=== PATIENT | male | born 1955 | race African-American/Black ===

== ENCOUNTER 2019-08-18 02:46 | Inpatient (IN) | payer OTHER, MEDICARE ==
[~2019-08-18] VITALS: Ht 177.8 cm; Wt 78.0 kg
--- NOTE | 2019-08-18 03:10 | NUR ---
PT CAME TO ER BED 2 C/O "FEELING LIKE GOING INTO A DIABETIC COMA". PATIENT STATES THAT HE JUST RECENTLY GOT OUT [facility] AND HE DOES NOT WANT TO YET. BLOOD SUGAR CHECKED 444. AAOX4. NOT IN DISTRESS. IV LINE ESTABLISHED ON THE LEFT ADN RIGHT HAND 20G UPON ARRIVAL. CONNECTED TO THE WIG MAKER.
[2019-08-18] MEDS ORDERED: IV NS 0.9% 1,000 ML BAG IV ONE ×3 (03:30→06:00)
[2019-08-18 03:33] LABS: BASOPHILS # (AUTO) 0.1 /CMM (0.0-0.2); BASOPHILS % (AUTO) 0.7 % (0.0-2.0); EOSINOPHILS % (AUTO) 1.3 % (0.0-6.0); HEMATOCRIT 37 % (39-51); LYMPHOCYTES # (AUTO) 2.2 /CMM (0.8-4.8); LYMPHOCYTES % (AUTO) 20.6 % (20.0-44.0); MEAN CORPUSCULAR HGB CONC 32 g/dl (31.0-36.0); MEAN CORPUSCULAR VOLUME 91 fL (80-96); MONOCYTES # (AUTO) 0.9 /CMM (0.1-1.30); MONOCYTES % (AUTO) 8.2 % (2.0-12.0); NEUTROPHILS # (AUTO) 7.4 /CMM (1.8-8.9); NEUTROPHILS % (AUTO) 69.2 % (43.0-81.0); PLATELET COUNT (AUTO) 160 /CMM (150-450); RED BLOOD CELL COUNT(AUTO) 4.12 MIL/uL (4.5-6.0); WHITE BLOOD COUNT (AUTO) 10.7 K/uL (4.3-11.0)
[2019-08-18 03:51] LABS: CALCIUM, SERUM 8.5 mg/dL (8.5-10.1); POTASSIUM 5.5 mmol/L (3.5-5.1)
[2019-08-18 03:52] LABS: CREATININE 3.1 mg/dL (0.6-1.3)
--- NOTE | 2019-08-18 03:54 | NUR ---
URINE COLLECTED AND SENT TO LAB
[2019-08-18 03:55] LABS: ALBUMIN 3.3 g/dL (3.4-5.0); BILIRUBIN,TOTAL 0.1 mg/dL (0.2-1.0); TOTAL PROTEIN, SERUM 7.3 g/dL (6.4-8.2)
[2019-08-18] MEDS ORDERED: INSULIN REGULAR, HUMAN 100 UNIT/ML 10 ML VIAL SQ ONE (04:00)
[2019-08-18] MEDS ORDERED: INSULIN REGULAR, HUMAN 100 UNIT/ML 10 ML VIAL ONE (04:07)
[2019-08-18 04:08] LABS: APPEARANCE,URINE Clear (CLEAR); BILIRUBIN,URINE Negative (NEGATIVE); BLOOD, URINE Moderate Ery/uL (NEGATIVE); COLOR,URINE Yellow (YELLOW); KETONES,URINE Negative (NEGATIVE); LEUKOCYTE ESTERASE ,URINE Negative (NEGATIVE); NITRITE, URINE Negative (NEGATIVE); PH,URINE 5.5 (5.0-8.0); PROTEIN,URINE >=300 mg/dl (NEGATIVE); UGLUCOSE 500 MG/DL mg/dL (NEGATIVE); UROBILINOGEN,URINE 0.2 EU/dL (0.2)
[2019-08-18 05:00] LABS: BACTERIA,URINE Few /HPF (None Seen); SQUAMOUS EPITHELIAL CELL,UR Rare /HPF (None Seen); WBC,URINE 0-2 /HPF (0-3)
--- NOTE | 2019-08-18 05:25 | NUR ---
BED ASSIGNMENT 327
[2019-08-18] MEDS ORDERED: ONDANSETRON HCL/PF 4 MG/2 ML VIAL IVP PRN (05:30)
[2019-08-18] MEDS ORDERED: Z GUARD REMEDY 2 OZ OINT TP PRN (05:30)
[2019-08-18] MEDS ORDERED: DEXTROSE 50%-WATER 50 ML DISP.SYRIN IV PRN (05:30)
[2019-08-18] MEDS ORDERED: MAGNESIUM HYDROXIDE 30 ML UDC PO PRN (05:30)
[2019-08-18] MEDS ORDERED: MAG HYDROX/AL HYDROX/SIMETH 30 ML UDC PO PRN (05:30)
--- NOTE | 2019-08-18 05:30 | NUR ---
PATIENT IS RESTING COMFORTABLY IN BED 2. NOT IN ANY DISTRESS. BREATHING EVENLY AND UNLABORED. CONNECTED TO MONITOR. CALL LIGHT WITHIN REACH.
[2019-08-18 05:39] LABS: CREATININE 2.8 mg/dL (0.6-1.3); POTASSIUM 5.3 mmol/L (3.5-5.1)
--- NOTE | 2019-08-18 06:10 | NUR ---
REPORT GIVEN TO DEBBIE STEELE. FOR OLEKSANDR
[2019-08-18] MEDS: BLOOD SUGAR DIAGNOSTIC 1 EACH STRIP IN SCH ×4 (07:30→22:37)
--- NOTE | 2019-08-18 08:14 | NUR ---
MS RN NOTES PATIENT IN BED, ALERT AND ORIENTED X 4. BREATHING EVEN AND UNLABORED ON NC 2L. DENIES ACUTE RESPIRATORY DISTRESS, NO ACUTE PAIN. IV ON L HAND #20G, CLEAN DRY AND INTACT. SHOWS NO REDNESS, NO INFILTRATION. SAFETY PRECAUTIONS IN PLACE. BED IN LOWEST POSITION, LOCKED, AND CALL LIGHT KEPT WITHIN REACH. WILL CONTINUE TO MONITOR.
[2019-08-18] MEDS ORDERED: INSULIN (09:23)
[2019-08-18] MEDS ORDERED: ASPI-605 PO (09:23)
[2019-08-18] MEDS ORDERED: DILANTIN (09:23)
[2019-08-18] MEDS ORDERED: B/P MEDS (09:23)
--- NOTE | 2019-08-18 10:45 | NUR ---
MS RN NOTES BS 159 PATIENT WAS REFUSED FOR INSULIN INJECTION.
[2019-08-18] MEDS: IV 1/2NS 1000 ML 1,000 ML IV PRN (11:23)
--- NOTE | 2019-08-18 12:30 | NUR ---
TELE/RN NOTE BLOOD SUGAR CHECK SCHEDULED AT 0730 IS DONE AT 1043 PER PATIENT REQUEST. NOTED BLOOD SUGAR READING OF 153. THE PATIENT REFUSED INSULIN ADMINISTRATION DESPITE EXPLAINING RISKS AND BENEFITS MULTIPLE TIMES.
[2019-08-18] MEDS: INSULIN REGULAR, HUMAN 100 UNIT/ML 3 ML VIAL SQ PRN ×2 (12:44→17:41)
--- NOTE | 2019-08-18 12:48 | NUR ---
MS/RN NOTES BS-179 ADMINISTERED 4 UNITS INSULIN. Addendum: 08/18/19 at 1823 by LELA LAUREANO RN ERROR DOCUMENTATION
[2019-08-18] MEDS ORDERED: AMLODIPINE BESYLATE 5 MG TABLET PO SCH (14:30)
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
[2019-08-18 16:00] VITALS: BP 139/70
[2019-08-18] MEDS: AMLODIPINE BESYLATE 5 MG TABLET PO SCH (16:28)
--- NOTE | 2019-08-18 19:10 | NUR ---
MS/RN NOTE THE PATIENT IS ALERT AND ORIENTED X4. DENIES PAIN OR SOB AT THIS TIME. IN ROOM AIR. IN NO APPARENT DISTRESS. IV LINES ON BOTH HAND ARE INTACT AND PATENT. BED LOW AND LOCKED. SIDE RAILS UP X3. CALL LIGHT WITHIN REACH. WILL ENDORSE TO BEACH EXPERT.
--- NOTE | 2019-08-18 19:25 | NUR ---
RN NOTES RECEIVED PATIENT AWAKE, ALERT ORIENTED X4, SAFETY MEASURES IN PLACE, ASPIRATION PRECAUTION EMPHASIZED, CALL LIGHT WITHIN EASY REACH, ALL NEEDS ANTICIPATED, WILL MONITOR ACCORDINGLY.
[2019-08-18 20:00] VITALS: BP 134/79
[2019-08-18] MEDS: PHENYTOIN EXTENDED RELEASE 100 MG CAPSULE PO SCH (21:36)
--- NOTE | 2019-08-18 22:55 | NUR ---
RN NOTES CALLED AND SPOKE TO DR. POSADA REGARDING BLOOD SUGAR MONITORING AND INSULIN SLIDING SCALE CLARIFICATION, BLOOD SUGAR MONITORING IS ACHS AND INSULIN COVERAGE IS AC AGGRESSIVE ONLY. LATEST BLOOD SUGAR RESULT IS 162 MG/DL NO INSULIN COVERAGE PER DR POSADA, ONLY AC AGGRESSIVE SLIDING SCALE, NOTED CHARGE NURSE [place] AWARE, WILL MONITOR PATIENT ACCORDINGLY.
[2019-08-19 00:29] LABS: APPEARANCE,URINE CLEAR (CLEAR); BILIRUBIN,URINE NEGATIVE (NEGATIVE); BLOOD, URINE TRACE-INTA Ery/uL (NEGATIVE); COLOR,URINE YELLOW (YELLOW); KETONES,URINE NEGATIVE (NEGATIVE); LEUKOCYTE ESTERASE ,URINE NEGATIVE (NEGATIVE); NITRITE, URINE NEGATIVE (NEGATIVE); PROTEIN,URINE 100 mg/dl (NEGATIVE); UGLUCOSE NEGATIVE (NEGATIVE); UROBILINOGEN,URINE 0.2 EU/dL (0.2)
[2019-08-19 00:35] LABS: BACTERIA,URINE None seen /HPF (None Seen); RBC,URINE 0-2 /HPF (0-2); SQUAMOUS EPITHELIAL CELL,UR Few /HPF (None Seen); WBC,URINE 0-2 /HPF (0-3)
[2019-08-19 01:04] LABS: CREATININE, URINE 82.4 MG/DL (30.0-125.0); URINE TOTAL PROTEIN 155.6 mg/dL (0-11.9)
[2019-08-19 03:32] LABS: EOSINOPHIL,URINE None Seen
--- NOTE | 2019-08-19 04:40 | NUR ---
RN NOTES SECOND UNIT OF PRBC TRANSFUSING, VITAL SIGNS WITHIN PATIENT'S NORMAL RANGE, NO SIGNS OF ACTIVE BLEEDING, ALERT ORIENTED X4 RESPOSIVE BUT WEAK. WILL MONITOR ACCORDINGLY. Addendum: 08/19/19 at 0810 by DULCE LIANG RN WRONG PATIENT DOCUMENTATION.
[2019-08-19] MEDS: BLOOD SUGAR DIAGNOSTIC 1 EACH STRIP IN SCH ×4 (06:47→21:20)
[2019-08-19] MEDS: INSULIN REGULAR, HUMAN 100 UNIT/ML 3 ML VIAL SQ PRN ×3 (06:55→21:32)
--- NOTE | 2019-08-19 07:20 | NUR ---
MS RN NOTES PATIENT IN BED ALERT ORIENTED X 4. NO ACUTE DISTRESS NOTED. BREATHING UNLABORED. IV ACCESS PATENT AND INTACT, NO REDNESS OR SWELLING NOTED. SAFETY MEASURES IN PLACE. CALL LIGHT WITHIN REACH. WILL CONTINUE TO MONITOR ACCORDINGLY
--- NOTE | 2019-08-19 07:23 | NUR ---
RN NOTES ALL NEEDS ATTENDED AND MET ABLE TO REST AND SLEPT AT INTERVALS, BLOOD TRANSFUSION ON GOING. ENDORSE TO AM NURSE FOR CONTINUITY OF CARE, NPO SINCE MIDNIGHT. Addendum: 08/19/19 at 0811 by DULCE LIANG RN DISREGARD ABOVE NOTES. WRONG PATIENT DOCUMENTATION.
--- NOTE | 2019-08-19 07:30 | NUR ---
RN NOTES ALL NEEDS ATTENDED, ENDORSED TO AM NURSE FOR CONTINUITY OF CARE.
[2019-08-19 08:00] VITALS: BP 148/80
[2019-08-19 08:46] LABS: BASOPHILS # (AUTO) 0.1 /CMM (0.0-0.2); BASOPHILS % (AUTO) 0.7 % (0.0-2.0); EOSINOPHILS % (AUTO) 2.8 % (0.0-6.0); HEMATOCRIT 36 % (39-51); HEMOGLOBIN 11.9 g/dL (13.5-17.5); LYMPHOCYTES # (AUTO) 2.7 /CMM (0.8-4.8); LYMPHOCYTES % (AUTO) 35.4 % (20.0-44.0); MEAN CORPUSCULAR HGB CONC 33 g/dl (31.0-36.0); MEAN CORPUSCULAR VOLUME 89 fL (80-96); MONOCYTES # (AUTO) 0.5 /CMM (0.1-1.30); MONOCYTES % (AUTO) 6.6 % (2.0-12.0); NEUTROPHILS # (AUTO) 4.2 /CMM (1.8-8.9); NEUTROPHILS % (AUTO) 54.5 % (43.0-81.0); PLATELET COUNT (AUTO) 158 /CMM (150-450); RED BLOOD CELL COUNT(AUTO) 4.06 MIL/uL (4.5-6.0); WHITE BLOOD COUNT (AUTO) 7.7 K/uL (4.3-11.0)
[2019-08-19 08:49] LABS: ALBUMIN 2.9 g/dL (3.4-5.0); BILIRUBIN,TOTAL 0.3 mg/dL (0.2-1.0); CALCIUM, SERUM 8.7 mg/dL (8.5-10.1); CREATININE 2.7 mg/dL (0.6-1.3); MAGNESIUM 1.7 mg/dL (1.8-2.4); PHOSPHORUS 2.8 mg/dL (2.5-4.9); POTASSIUM 5.3 mmol/L (3.5-5.1); TOTAL PROTEIN, SERUM 6.6 g/dL (6.4-8.2)
[2019-08-19 09:20] LABS: PHENYTOIN (DILANTIN) 1.3 ug/ml (10.0-20.0)
[2019-08-19] MEDS: PHENYTOIN EXTENDED RELEASE 100 MG CAPSULE PO SCH ×2 (09:59→21:20)
[2019-08-19] MEDS: ASPIRIN EC 81 MG TABLET.DR PO SCH (09:59)
[2019-08-19] MEDS: AMLODIPINE BESYLATE 5 MG TABLET PO SCH ×2 (10:00→17:39)
--- NOTE | 2019-08-19 13:59 | NUR ---
MS RN NOTES PATIENT SEEN AND EVALUATED BY WELLNESS TRAINER ASPEN CHATTERJEE WITH NO NEW ORDERS MADE.
[2019-08-19 16:00] VITALS: BP 138/84
[2019-08-19] MEDS: IV 1/2NS 1000 ML 1,000 ML IV PRN (17:43)
--- NOTE | 2019-08-19 18:40 | NUR ---
MS RN NOTES PATIENT IN BED ALERT ORIENTED X 3. NO ACUTE DISTRESS NOTED. BREATHING UNLABORED. IV ACCESS PATENT AND INTACT, NO REDNESS OR SWELLING NOTED. NEEDS ATTENDED AND ANTICIPATED. KEPT CLEAN DRY AND COMFORTABLE. SAFETY MEASURES IN PLACE. CALL LIGHT WITHIN REACH. WILL ENDORSE TO NIGHT NURSE FOR CONTINUITY OF CARE.
[2019-08-19 20:00] VITALS: BP 139/77
--- NOTE | 2019-08-20 06:30 | NUR ---
MS RN NOTES AWAKE & RESPONSIVE. NOT IN ANY DISTRESS. NO SOB NOTED. DENIES ANY PAIN OR DISCOMFORT AT THIS TIME. WITH IVF INFUSING WELL. MONITORED ACCORDINGLY. CALL LIGHT WITHIN REACH. BED IN LOWEST POSITION. SR UP X 2 FOR SAFETY. WILL ENDORSE TO NEXT SHIFT.
[2019-08-20] MEDS: BLOOD SUGAR DIAGNOSTIC 1 EACH STRIP IN SCH ×4 (06:32→21:49)
[2019-08-20] MEDS: INSULIN REGULAR, HUMAN 100 UNIT/ML 3 ML VIAL SQ PRN ×4 (06:33→21:50)
[2019-08-20] MEDS: ACETAMINOPHEN 325 MG TABLET PO PRN ×2 (06:44→21:31)
[2019-08-20 07:30] LABS: BASOPHILS # (AUTO) 0.1 /CMM (0.0-0.2); BASOPHILS % (AUTO) 0.7 % (0.0-2.0); EOSINOPHILS % (AUTO) 0.7 % (0.0-6.0); HEMATOCRIT 36 % (39-51); HEMOGLOBIN 11.9 g/dL (13.5-17.5); LYMPHOCYTES # (AUTO) 2.1 /CMM (0.8-4.8); LYMPHOCYTES % (AUTO) 23.2 % (20.0-44.0); MEAN CORPUSCULAR HGB CONC 33 g/dl (31.0-36.0); MEAN CORPUSCULAR VOLUME 88 fL (80-96); MONOCYTES # (AUTO) 0.6 /CMM (0.1-1.30); MONOCYTES % (AUTO) 7.1 % (2.0-12.0); NEUTROPHILS # (AUTO) 6.1 /CMM (1.8-8.9); NEUTROPHILS % (AUTO) 68.3 % (43.0-81.0); PLATELET COUNT (AUTO) 150 /CMM (150-450); RED BLOOD CELL COUNT(AUTO) 4.03 MIL/uL (4.5-6.0); WHITE BLOOD COUNT (AUTO) 8.9 K/uL (4.3-11.0)
--- NOTE | 2019-08-20 07:30 | NUR ---
RN OPENING NOTES RECEIVED PATIENT IN BED RESTING COMFORTABLY IN MODERATE HIGH BACK REST. A/O X4. ABLE TO MAKE NEEDS KNOWN. NO SIGNS OF DISTRESS NOTED AT THIS TIME. IV FLUIDS ON R HAND #22 RUNNING WITH NS @125 ML/HR. PATENT AND INTACT. SAFETY MEASURES IN PLACE, BED IN LOWEST LOCKED POSITION WITH SIDE RAILS UP X2. CALL LIGHT WITHIN REACH. WILL CONTINUE TO MONITOR.
[2019-08-20 07:46] LABS: CALCIUM, SERUM 8.5 mg/dL (8.5-10.1); CREATININE 2.7 mg/dL (0.6-1.3); POTASSIUM 4.9 mmol/L (3.5-5.1)
[2019-08-20 08:00] VITALS: BP 141/78
[2019-08-20] MEDS: ASPIRIN EC 81 MG TABLET.DR PO SCH (08:28)
[2019-08-20] MEDS: AMLODIPINE BESYLATE 5 MG TABLET PO SCH ×2 (08:28→16:31)
[2019-08-20] MEDS: PHENYTOIN EXTENDED RELEASE 100 MG CAPSULE PO SCH ×2 (08:28→21:31)
[2019-08-20] MEDS: IV 1/2NS 1000 ML 1,000 ML IV PRN ×2 (13:48→22:54)
[2019-08-20 16:00] VITALS: BP 146/80
--- NOTE | 2019-08-20 18:52 | NUR ---
RN CLOSING NOTES PATIENT IN BED RESTING COMFORTABLY IN MODERATE HIGH BACK REST. A/O X4. ABLE TO MAKE NEEDS KNOWN. NO SIGNS OF DISTRESS NOTED THROUGHOUT THE SHIFT. IV FLUIDS ON LEFT HAND #22 RUNNING WITH NS @125 ML/HR. PATENT AND INTACT. SAFETY MEASURES IN PLACE, BED IN LOWEST LOCKED POSITION WITH SIDE RAILS UP X2. CALL LIGHT WITHIN REACH. WILL ENDORSE TO CASINO SHIFT MANAGER NURSE FOR OLEKSANDR.
[2019-08-20 20:56] VITALS: BP 152/95
[2019-08-20] MEDS ORDERED: INSULIN GLARGINE, 100 UNIT/ML CARTRIDGE SQ SCH (22:00)
--- NOTE | 2019-08-21 00:04 | NUR ---
MS RN NOTES RECEIVED PT IN BED AWAKE AND ABLE TO MAKE NEEDS KNOWN. CA/O X4. ABLE TO MAKE NEEDS KNOWN. RESPIRATIONS EVEN AND UNLABORED WITH NO S/S OF ACUTE DISTRESS OR SOB NOTED. IV FLUIDS ON R HAND #22 RUNNING WITH NS @125 ML/HR, PATENT AND INTACT. SAFETY MEASURES IN PLACE WITH BED IN LOWEST LOCKED POSITION WITH SIDE RAILS UP X2. CALL LIGHT WITHIN REACH. WILL CONTINUE TO MONITOR.
[2019-08-21 07:32] LABS: BASOPHILS # (AUTO) 0.1 /CMM (0.0-0.2); BASOPHILS % (AUTO) 0.9 % (0.0-2.0); EOSINOPHILS % (AUTO) 2.6 % (0.0-6.0); HEMATOCRIT 40 % (39-51); HEMOGLOBIN 13.3 g/dL (13.5-17.5); LYMPHOCYTES # (AUTO) 3.2 /CMM (0.8-4.8); MEAN CORPUSCULAR HGB CONC 33 g/dl (31.0-36.0); MEAN CORPUSCULAR VOLUME 89 fL (80-96); MONOCYTES # (AUTO) 0.8 /CMM (0.1-1.30); MONOCYTES % (AUTO) 10.4 % (2.0-12.0); NEUTROPHILS # (AUTO) 3.3 /CMM (1.8-8.9); NEUTROPHILS % (AUTO) 44.1 % (43.0-81.0); PLATELET COUNT (AUTO) 169 /CMM (150-450); RED BLOOD CELL COUNT(AUTO) 4.47 MIL/uL (4.5-6.0); WHITE BLOOD COUNT (AUTO) 7.5 K/uL (4.3-11.0)
[2019-08-21] MEDS: INSULIN REGULAR, HUMAN 100 UNIT/ML 3 ML VIAL SQ PRN ×2 (07:32→11:43)
[2019-08-21] MEDS: BLOOD SUGAR DIAGNOSTIC 1 EACH STRIP IN SCH ×2 (07:32→11:41)
[2019-08-21 07:36] LABS: CALCIUM, SERUM 8.6 mg/dL (8.5-10.1); CREATININE 2.8 mg/dL (0.6-1.3); POTASSIUM 4.3 mmol/L (3.5-5.1)
[2019-08-21 07:38] LABS: PHENYTOIN (DILANTIN) 3.9 ug/ml (10.0-20.0)
--- NOTE | 2019-08-21 07:44 | NUR ---
MS RN NOTES PT IN BED AWAKE AND ABLE TO MAKE NEEDS KNOWN. CA/O X4. ABLE TO MAKE NEEDS KNOWN. RESPIRATIONS EVEN AND UNLABORED WITH NO S/S OF ACUTE DISTRESS OR SOB NOTED THROUGHOUT SHIFT. IV FLUIDS ON R HAND #22 RUNNING WITH NS @125 ML/HR, PATENT AND INTACT. SAFETY MEASURES IN PLACE WITH BED IN LOWEST LOCKED POSITION WITH SIDE RAILS UP X2. CALL LIGHT WITHIN REACH. WILL ENDORSE TO ONCOMING NURSE FOR OLEKSANDR.
[2019-08-21 08:00] VITALS: BP 124/74
--- NOTE | 2019-08-21 08:00 | NUR ---
m/s rail car operator: initial assessment received pt in bed awake, a/ox4. ambulatory. for d'c planning home today. pt will sign homeless waiver form per forensic social worker. pt will go to [facility] and [facility]) already provided pt resources. Addendum: 08/21/19 at 1204 by MERNA GIPSON RECREATION ATTENDANT pt iv to right hand was dislodged per noc nurse and pt refused iv insertion. pt for d'c planning today.
[2019-08-21 09:06] VITALS: BP 124/74
[2019-08-21] MEDS: PHENYTOIN EXTENDED RELEASE 100 MG CAPSULE PO SCH (09:06)
[2019-08-21] MEDS: AMLODIPINE BESYLATE 5 MG TABLET PO SCH (09:06)
[2019-08-21] MEDS: ASPIRIN EC 81 MG TABLET.DR PO SCH (09:10)
--- NOTE | 2019-08-21 11:00 | NUR ---
m/s process tech: md visit seen and examined by valeria sandhu ([facility]). valeria will put the discharge order with prescription. pt aware.
--- NOTE | 2019-08-21 12:00 | NUR ---
m/s staffing mgr: notes lunch served. awaiting discharge order and prescriptions from valeria ([facility]). pt aware.
[2019-08-21 12:06] LABS: *SPE A/G RATIO 1.1 (0.7-1.7); *SPE ALPHA-1-GLOBULIN 0.2 g/dL (0.0-0.4); *SPE BETA GLOBULIN 0.7 g/dL (0.7-1.3); *SPE GLOBULIN, TOTAL 2.8 g/dL (2.2-3.9); *SPE M-SPIKE Not Observed g/dL (Not Observed)
--- NOTE | 2019-08-21 13:29 | NUR ---
m/s scout: notes received order from valeria sandhu ([facility]) with order to discharge pt. order acknowledged.
[2019-08-21] MEDS ORDERED: INSU100I26 SQ (13:38)
[2019-08-21] MEDS ORDERED: AMLO5TAB9 PO (13:38)
[2019-08-21] MEDS ORDERED: PHEN100C4 PO (13:38)
[2019-08-21] MEDS ORDERED: Insulin Glargine,Hum SQ (13:39)
--- NOTE | 2019-08-21 14:00 | NUR ---
m/s editor trade journal: notes discharge instructions with e script prescriptions given to pt with homeless waiver form completed. pt verbalized understanding. tap card provided with 1 shirt.
--- NOTE | 2019-08-21 14:05 | NUR ---
m/s kindergarten tutor: discharged discharged home/correction in stable condition with all valuables and d'c papers.
[2019-08-22 13:06] LABS: PTH, INTACT 67 pg/mL (15-65)
== END 2019-08-21 14:00 | disposition home or self-care (01) | DRG 640 ==
LOC: ER 02:49 → MED 05:34
PROVIDERS: ADMIT Nurse Practitioner Acute Care; ATTEND Nurse Practitioner Acute Care
DX: E86.0 Dehydration (principal); N17.0 Acute kidney failure with tubular necrosis; E44.1 Mild protein-calorie malnutrition; E11.22 Type 2 diabetes mellitus with diabetic chronic kidney disease; E11.65 Type 2 diabetes mellitus with hyperglycemia; I12.9 Hypertensive chronic kidney disease with stage 1 through stage 4 chronic kidney disease, or unspecified chronic kidney disease; G40.909 Epilepsy, unspecified, not intractable, without status epilepticus; N18.9 Chronic kidney disease, unspecified; E78.5 Hyperlipidemia, unspecified; F17.210 Nicotine dependence, cigarettes, uncomplicated; E87.5 Hyperkalemia; Q78.9 Osteochondrodysplasia, unspecified; Z91.19 Patient's noncompliance with other medical treatment and regimen; Z59.0 Homelessness; Z68.24 Body mass index [BMI] 24.0-24.9, adult
CPT/HCPCS: 36415; 76770-TC; 80048-TC; 80053-TC; 80061-TC; 80076-TC; 80185-TC; 81000-TC; 82550-TC; 82570-TC; 82962-TC; 83605-TC; 83735-TC; 83970; 84100-TC; 84132-TC; 84155; 84155-TC; 84165; 84300-TC; 85025-TC; 87081-TC; G0378; J1815; J3490; J7030